=== PATIENT | male | born 1985 | race Two or more races ===

== ENCOUNTER 2023-02-01 12:45 | Emergency (ER) | payer OTHER ==
[2023-02-01 13:01] VITALS: BP 138/89; PULSE 87; RESP 18; TEMP 98.1; BMI 21.9
[2023-02-01] MEDS ORDERED: DIPHTH,PERTUSS(ACELL),TET 0.5 ML DISP.SYRIN IM ONE ×2 (13:04→13:10)
[2023-02-01] MEDS ORDERED: cefTRIAXone SODIUM 1 GM VIAL ONE (14:30)
== END 2023-02-01 14:50 | disposition home or self-care (01) ==
LOC: JERFT 12:45
PROC: 0HQKXZZ Repair Right Lower Leg Skin, External Approach (ICD-10-PCS; principal; 2023-02-01)
PROC: 3E02329 Introduction of Other Anti-infective into Muscle, Percutaneous Approach (ICD-10-PCS; 2023-02-01)
PROC: 3E0234Z Introduction of Serum, Toxoid and Vaccine into Muscle, Percutaneous Approach (ICD-10-PCS; 2023-02-01)
DX: S81.021A Laceration with foreign body, right knee, initial encounter (principal); W29.3XXA Contact with powered garden and outdoor hand tools and machinery, initial encounter
CPT/HCPCS: 12032; 73562-TC-RT-FY; 90471; 90715; 96372; 99284-25

== ENCOUNTER 2023-02-03 17:29 | Emergency (ER) | payer SELFPAY ==
[2023-02-03 17:34] VITALS: BP 147/83; PULSE 66; RESP 18; TEMP 98.1; BMI 22.6
== END 2023-02-03 18:09 | disposition home or self-care (01) ==
LOC: JERFT 17:29
DX: Z48.00 Encounter for change or removal of nonsurgical wound dressing (principal); S81.011D Laceration without foreign body, right knee, subsequent encounter; W29.3XXD Contact with powered garden and outdoor hand tools and machinery, subsequent encounter
CPT/HCPCS: 99281-25

== ENCOUNTER 2023-02-12 19:28 | Emergency (ER) | payer SELFPAY ==
[2023-02-12 19:36] VITALS: BP 108/63; PULSE 79; RESP 18; TEMP 98.5; BMI 24.2
== END 2023-02-12 20:00 | disposition home or self-care (01) ==
LOC: JERFT 19:28
DX: Z48.02 Encounter for removal of sutures (principal)
CPT/HCPCS: 99281-25

== ENCOUNTER 2023-06-27 14:14 | Emergency (ER) | payer OTHER ==
[2023-06-27 14:30] VITALS: BP 125/80; PULSE 71; RESP 18; TEMP 98; BMI 29.2
[2023-06-27] MEDS ORDERED: ACETAMINOPHEN 500 MG TABLET (FP) PO ONE (15:31)
[2023-06-27] MEDS ORDERED: LIDOCAINE 4% PATCH TP ONE ×2 (15:32→16:07)
[2023-06-27] MEDS ORDERED: KETOROLAC TROMETHAMINE 30 MG/1 ML VIAL IM ONE (15:32)
[2023-06-27] MEDS ORDERED: KETOROLAC TROMETHAMINE 30 MG/1 ML VIAL ONE (16:07)
[2023-06-27] MEDS ORDERED: ACETAMINOPHEN 500 MG TABLET (FP) ONE (16:07)
[2023-06-27] MEDS ORDERED: oxyCODONE HCL 5 MG TABLET PO ONE (17:34)
[2023-06-27] MEDS ORDERED: oxyCODONE HCL 5 MG TABLET ONE (17:37)
[2023-06-27] MEDS ORDERED: LIDOCAINE PATCH REMOVAL MC SCH (22:00)
== END 2023-06-27 18:15 | disposition home or self-care (01) ==
LOC: JERFT 14:14
PROC: 3E0233Z Introduction of Anti-inflammatory into Muscle, Percutaneous Approach (ICD-10-PCS; principal; 2023-06-27)
DX: M25.552 Pain in left hip (principal)
CPT/HCPCS: 73502-TC-LT-FY; 99284-25